=== PATIENT | female | born 1985 | race Caucasian/White ===

== ENCOUNTER 2017-03-04 09:13 | Outpatient (CLI) | payer OTHER ==
[2017-03-04 10:07] LABS: APPEARANCE,URINE SLIGHTLY-CLOUDY; BILIRUBIN,URINE NEGATIVE (NEGATIVE); GLUCOSE, URINE NEGATIVE (NEGATIVE); KETONES,URINE NEGATIVE (NEGATIVE); LEUKOCYTE ESTERASE,URINE NEGATIVE (NEGATIVE); NITRITE,URINE NEGATIVE (NEGATIVE); PROTEIN,URINE NEGATIVE (NEGATIVE); URINE SPECIFIC GRAVITY 1.017; UROBILINOGEN,URINE NEGATIVE mg/dL (<2.0)
--- NOTE | 2017-03-04 10:13 | L&D Progress Notes ---
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 rtc as scheduled SIGNATURE SIGNATURE: [id number] Assignment: Valerie Cosme MD Signature: with User ID: [email or web address] : with User ID: [email or web address]
[2017-03-04 10:29] LABS: URINE BARBITURATES SCREEN NEGATIVE; URINE METHADONE SCREEN NEGATIVE; URINE OPIATES LOW NEGATIVE; URINE PHENCYCLIDINE SCREEN NEGATIVE
== END 2017-03-04 10:20 | disposition home or self-care (01) ==
LOC: LC 09:13
PROVIDERS: ATTEND Obstetrics & Gynecology
PROC: 4A1HXCZ Monitoring of Products of Conception, Cardiac Rate, External Approach (ICD-10-PCS; principal; 2017-03-04)
DX: O26.893 Other specified pregnancy related conditions, third trimester (principal); R10.2 Pelvic and perineal pain; Z3A.37 37 weeks gestation of pregnancy
CPT/HCPCS: 59025; 80307; 81005

== ENCOUNTER 2017-03-20 14:07 | Outpatient (CLI) | payer OTHER ==
[2017-03-20 14:42] LABS: APPEARANCE,URINE SLIGHTLY-CLOUDY; BILIRUBIN,URINE NEGATIVE (NEGATIVE); GLUCOSE, URINE NEGATIVE (NEGATIVE); KETONES,URINE NEGATIVE (NEGATIVE); LEUKOCYTE ESTERASE,URINE MODERATE (NEGATIVE); NITRITE,URINE NEGATIVE (NEGATIVE); PROTEIN,URINE NEGATIVE (NEGATIVE); URINE SPECIFIC GRAVITY 1.009; UROBILINOGEN,URINE NEGATIVE mg/dL (<2.0)
[2017-03-20 14:52] LABS: URINE BARBITURATES SCREEN NEGATIVE; URINE METHADONE SCREEN NEGATIVE; URINE OPIATES LOW NEGATIVE; URINE PHENCYCLIDINE SCREEN NEGATIVE
--- NOTE | 2017-03-20 15:04 | Non Stress Test Report ---
Non Stress Test Datetime Report Generated by CPN: 03/20/2017 15:04 DEMOGRAPHIC EGA NST: 39.2 EGA NST: 37.0 INDICATION Indication for Study: Other Indication for Study: Other Indication for Study (NST) Other: pih Indication for Study (NST) Other: LC-pelvic pain VITAL SIGNS Temperature - NST: 98.6 Pulse - NST: 102 RESP - NST: 16 NBPSYS NST: 126 NBPDIA NST: 65 MONITORING Monitor Explained: Monitor Explained; Test Explained; Patient Verbalized Understanding Monitor Explained: Monitor Explained; Test Explained; Patient Verbalized Understanding Time on Monitor: 03/20/2017 14:33 Time on Monitor: 03/04/2017 09:40 Time off Monitor: 03/20/2017 15:03 Time off Monitor: 03/04/2017 10:00 NST Duration: 30 NST Duration: 20 NST INTERVENTIONS NST Interventions: PO Hydration NST Interventions: None Physician Notified NST: Dr Yeh Physician Notified NST: A Emmel CNM BABY A: [id number] BABY A Movement : Present Movement : Present Contraction Frequency : 0 Contraction Frequency : x0 FHR Baseline : 125 FHR Baseline : 145 Accelerations : 15X15 Accelerations : 15X15 Decelerations : None Decelerations : None Variability : Moderate 6-25bpm Variability : Moderate 6-25bpm NST Review: Meets Criteria for Reactive NST NST Review: Meets Criteria for Reactive NST NST Review and Verified By : Lucius Chaney RN NST Results: Reactive NST Results: Reactive NST REPORT Report Trigger: Send Report
[2017-03-20 15:33] LABS: ABSOLUTE LYMPHOCYTES (AUTO) 1.3 10^3/uL (0.5-4.7); ABSOLUTE MONOCYTES (AUTO) 0.8 10^3/uL (0.1-1.4); ABSOLUTE NEUT (AUTO) 6.1 10^3/uL (1.7-8.2); BASOPHILS % (AUTO) 0.2 % (0-2); EOSINOPHILS % (AUTO) 0.5 % (0-6); HEMATOCRIT 35.4 % (36.0-47.0); HGB HCT DIFFERENCE 0.6; LYMPHOCYTES % (AUTO) 15.7 % (13-45); MEAN CORPUSCULAR HEMOGLOBIN 31.2 pg (27.0-33.4); MEAN CORPUSCULAR HGB CONC 33.8 g/dL (32.0-36.0); MEAN CORPUSCULAR VOLUME 92 fl (80-97); MONOCYTES % (AUTO) 10.2 % (3-13); RED BLOOD COUNT 3.83 10^6/uL (3.72-5.28); RED CELL DISTRIBUTION WIDTH 12.4 % (11.5-14.0); SEGMENTED NEUTROPHILS % (AUTO) 73.4 % (42-78); WHITE BLOOD COUNT 8.3 10^3/uL (4.0-10.5)
[2017-03-20 15:37] LABS: URINE CREATININE 63.7 mg/dL (16-327); URINE PROTEIN 11.4 mg/dL (<12)
[2017-03-20 16:02] LABS: ALANINE AMINOTRANSFERASE 29 U/L (9-52); ALBUMIN 3.1 g/dL (3.5-5.0); ALKALINE PHOSPHATASE 123 U/L (38-126); ANION GAP 7 (5-19); ASPARTATE AMINO TRANSFERASE 16 U/L (14-36); BILIRUBIN,DIRECT 0.2 mg/dL (0.0-0.4); BILIRUBIN,TOTAL 0.3 mg/dL (0.2-1.3); BLOOD UREA NITROGEN 11 mg/dL (7-20); CALCIUM 8.7 mg/dL (8.4-10.2); CARBON DIOXIDE 22 mmol/L (22-30); CHLORIDE 107 mmol/L (98-107); CREATININE RESULT 0.68 mg/dL (0.52-1.25); GLUCOSE 76 mg/dL (75-110); LDH 264 U/L (313-618); POTASSIUM 4.2 mmol/L (3.6-5.0); SODIUM 136.1 mmol/L (137-145); TOTAL PROTEIN 5.9 g/dL (6.3-8.2); URIC ACID 3.8 mg/dL (2.5-6.2)
== END 2017-03-20 16:24 | disposition home or self-care (01) ==
LOC: LC 14:07
PROVIDERS: ATTEND Student in an Organized Health Care Education/Training Program
DX: O26.893 Other specified pregnancy related conditions, third trimester (principal); R10.2 Pelvic and perineal pain; Z3A.39 39 weeks gestation of pregnancy
CPT/HCPCS: 36415; 59025; 80053; 80307; 81001; 82570; 83615; 84156; 84550; 85025

== ENCOUNTER 2017-03-27 18:44 | Inpatient (IN) | payer OTHER ==
[2017-03-27 19:41] LABS: APPEARANCE,URINE SLIGHTLY-CLOUDY; BILIRUBIN,URINE NEGATIVE (NEGATIVE); GLUCOSE, URINE NEGATIVE (NEGATIVE); KETONES,URINE NEGATIVE (NEGATIVE); LEUKOCYTE ESTERASE,URINE SMALL (NEGATIVE); NITRITE,URINE NEGATIVE (NEGATIVE); PROTEIN,URINE NEGATIVE (NEGATIVE); URINE SPECIFIC GRAVITY 1.012; UROBILINOGEN,URINE NEGATIVE mg/dL (<2.0)
[2017-03-27 19:56] LABS: URINE BARBITURATES SCREEN NEGATIVE; URINE METHADONE SCREEN NEGATIVE; URINE OPIATES LOW NEGATIVE; URINE PHENCYCLIDINE SCREEN NEGATIVE
[2017-03-27] MEDS ORDERED: RINGERS SOLUTION,LACTATED 1,000 ML IV PRN (20:00)
[2017-03-27] MEDS ORDERED: OXYTOCIN/NORMAL SALINE 20 UNIT/1,000 ML RTUINJ ONE (20:10)
[2017-03-27] MEDS ORDERED: LIDOCAINE 1% INJ-PF (10 MG/ML) 30 ML SDV ONE (20:10)
[2017-03-27] MEDS ORDERED: MISOPROSTOL 0.2 MG TABLET ONE (20:10)
[2017-03-27 20:32] LABS: ABSOLUTE EOSINOPHILS # (AUTO) 0.1 10^3/uL (0.0-0.6); ABSOLUTE LYMPHOCYTES (AUTO) 1.8 10^3/uL (0.5-4.7); ABSOLUTE MONOCYTES (AUTO) 1.1 10^3/uL (0.1-1.4); ABSOLUTE NEUT (AUTO) 9.8 10^3/uL (1.7-8.2); BASOPHILS % (AUTO) 0.2 % (0-2); EOSINOPHILS % (AUTO) 0.5 % (0-6); HEMATOCRIT 36.5 % (36.0-47.0); HEMOGLOBIN 12.1 g/dL (12.0-15.5); HGB HCT DIFFERENCE -0.2; LYMPHOCYTES % (AUTO) 14.2 % (13-45); MEAN CORPUSCULAR HEMOGLOBIN 30.7 pg (27.0-33.4); MEAN CORPUSCULAR HGB CONC 33.3 g/dL (32.0-36.0); MEAN CORPUSCULAR VOLUME 92 fl (80-97); MONOCYTES % (AUTO) 8.9 % (3-13); RED BLOOD COUNT 3.95 10^6/uL (3.72-5.28); RED CELL DISTRIBUTION WIDTH 12.9 % (11.5-14.0); SEGMENTED NEUTROPHILS % (AUTO) 76.2 % (42-78); WHITE BLOOD COUNT 12.9 10^3/uL (4.0-10.5)
[2017-03-27] MEDS ORDERED: EPHEDRINE SULFATE INJ 50 MG/1 ML AMPULE ONE (20:46)
[2017-03-27] MEDS ORDERED: FENTANYL/BUPIVACAINE/NS/PF 200 MCG/100 ML RTUINJ EPI ONE (20:46)
[2017-03-27] MEDS ORDERED: BUPIVACAINE HCL 0.25 % INJ/PF (2.5 MG/1 ML) 30 ML VIAL ONE (20:46)
--- NOTE | 2017-03-27 21:17 | L&D Progress Notes ---
PROGRESS NOTES Datetime Report Generated by CPN: 03/27/2017 21:17 PROGRESS NOTE Impression: Normal Progression of Labor Procedures: Sterile Vag Exam Plan: Continue Present Management; Anticipate Vaginal Delivery Informed Consent Obtained: Vaginal Delivery; Risks, Benefits and Alternatives Discussed Informed Consent Obtained: Vaginal Delivery; Risks, Benefits and Alternatives Discussed Vital Signs : Reviewed; Within Normal Limits Comment: pt now comfortable with epidural. Floey to gravity placed. SROM just after epidural - clear fluid. Cvx 8/80/0 now. Pt doing well and progressing well. no pitocin needed at this time. Continue present management. Anticipate . PElvis adequate for ELVA. VAGINAL EXAM Dilatation: 8 Dilatation: 6 Effacement: 80 Effacement: 80 Station: 0 Station: -1 Contractions: q2 Contractions: q2 MEMBRANES Pooling: Negative Membranes: Ruptured Membranes: Intact Amniotic Fluid Color: Clear FETUS A FHR - Baseline: 135 Monitoring: External US Variability: Moderate 6-25bpm Accelerations: 15X15 Decelerations: None Presentation: Vertex SIGNATURE SIGNATURE: [id number] SIGNATURE: [id number] Signature: with User ID: [email or web address]
[2017-03-27] MEDS ORDERED: PSEUDOEPHEDRINE HCL 30 MG TABLET PO PRN (23:08)
[2017-03-27] MEDS ORDERED: ACETAMINOPHEN 650 MG SUPP.RECT PR PRN (23:08)
[2017-03-27] MEDS ORDERED: GLYCERIN/WITCH HAZEL LEAF 1 EACH MED..PAD TP PRN (23:08)
[2017-03-27] MEDS ORDERED: ACETAMINOPHEN WITH CODEINE #3 TABLET PO PRN (23:08)
[2017-03-27] MEDS ORDERED: DIPH/PERTUSS(ACELL)/TETANUS VAC/PF 0.5 ML SYR (>=10YO) IM PRN (23:08)
[2017-03-27] MEDS ORDERED: ZOLPIDEM TARTRATE 5 MG TABLET PO PRN (23:08)
[2017-03-27] MEDS ORDERED: DIPHENHYDRAMINE HCL 25 MG CAPSULE PO PRN (23:08)
[2017-03-27] MEDS ORDERED: MEASLES,MUMPS&RUBELLA VACC/PF 0.5 ML VIAL SUBCUT PRN (23:08)
[2017-03-27] MEDS ORDERED: DIBUCAINE 1% OINTMENT 28 GM TP PRN (23:08)
[2017-03-27] MEDS ORDERED: PROMETHAZINE HCL INJ 25 MG/1 ML VIAL IV PRN (23:08)
[2017-03-27] MEDS ORDERED: PROMETHAZINE HCL 25 MG TABLET PO PRN (23:08)
[2017-03-27] MEDS ORDERED: BENZOCAINE/MENTHOL AEROSOL SPRAY 56 ML TOP PRN (23:08)
[2017-03-27] MEDS ORDERED: MAGNESIUM HYDROXIDE SUSP 30 ML UDCUP PO PRN (23:08)
[2017-03-27] MEDS ORDERED: PROMETHAZINE HCL 25 MG SUPP.RECT PR PRN (23:08)
[2017-03-27] MEDS ORDERED: NA PHOS,M-B/NA PHOS,DI-BA (ADULT) 133 ML ENEMA PR PRN (23:08)
[2017-03-27] MEDS ORDERED: OXYTOCIN/NORMAL SALINE 20 UNIT/1,000 ML RTUINJ IV PRN (23:08)
--- NOTE | 2017-03-28 01:14 | Admission Physical ---
Datetime Report Generated by CPN: 03/28/2017 01:14 CURRENT ADMISSION Chief Complaint: Uterine Contractions Indication for Induction: Not Applicable Admit Plan: Admit to Unit; Initiate Labor Protocol ALLERGIES Medication Allergies: Yes Medication Allergies: No Known Allergies (03/27/2017) Medication Allergies: No Known Allergies (03/04/2017) Medication Allergies: No Known Allergies (07/27/2015) Latex: Latex Allergies OBSTETRICAL HISTORY EDC: 03/25/2017 00:00 : 4 Para: 2 Term: 2 : 0 SAB: 1 IAB: 0 Livin Gestational Diabetes: No Rh Sensitization: No Incompetent Cervix: No ENRIQUE: No Infertility: No ART Treatment: No Uterine Anomaly: No IUGR: No Hx Previous C/S: No Macrosomia: No Hx Loss/Stillborn: No PIH: No Hx : No Placenta Previa/Abruption: No Depression/PP Depression: No PTL/PROM: No Post Hemorrhage: No Current Procedures: Ultrasound Obstetrical History Comments: G1: 2005, , male, term, epidural, [facility], 8#1 G2: 2009, SAB, early G3: 10/02/14, , male, term, epidural, [facility], 8#4 SEE RECORDS Alcohol: No Marijuana : No Cocaine: No Other Illicit Drugs: No Cigarettes: Never Smoker. 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 Surgery: No Heart Disease: No Hosp/Surgery: Yes Autoimmune Disorder: No Anesthetic Complications: No Kidney Disease: No Abnormal Pap Smear: No Neuro/Epilepsy: No Psychiatric Disorders: No Other Medical Diseases: No Hepatitis/Liver Disease: No Significant Family History: No Varicosities/Phlebitis: No Trauma/Violence : No Thyroid Dysfunction: No Medical History Comments: 12/2009: breast implants wisdom teeth shoulder surgery INFECTIOUS HISTORY Gonorrhea: No Genital Herpes: No Chlamydia: No Tuberculosis: No Syphilis: No Hepatitis: No HIV/AIDS Exposure: No Rash or Viral Illness: No HPV: No PHYSICAL EXAM General: Normal HEENT: Normal Neurologic: Normal Thyroid: Normal Heart: Normal Lungs: Normal Breast: Deferred Back: Normal Abdomen: Normal Genitourinary Exam: Normal Extremities: Normal DTRs: Normal Pelvic Type: Adequate Physical Exam Comments: pelvis proven to 8#4oz Vital Signs: Reviewed; Within Normal Limits VAGINAL EXAM Dilatation: 8 Dilatation: 6 Effacement: 80 Effacement: 80 Station: 0 Station: -1 Contraction Comments: q2 Contraction Comments: q2 MEMBRANES Pooling: Negative Membranes: Ruptured Membranes: Intact Amniotic Fluid Color: Clear FETUS A EGA: 40.2 Monitoring: External US FHR- Baseline: 140 Variability: Moderate 6-25bpm Accelerations: 15X15 Decelerations: None FHR Category: Category I Presentation: Vertex Admit Comment: 32yo (h/o x 2) presents with regular uterine ctx since approx 2 pm today. GBS negative. She was 4cm on presentation and rapidly changed cervix to 6-7cm. Admit to floor. Pt desires epidural. GHTN with this and prior . EFW 8-9#. Pelvis adequate for ELVA. Anticipate . o/w uncomplicated. Augment labor if needed PLANS FOR LABOR AND DELIVERY Labor and Delivery: None Pain Management: Epidural Feeding Preference: Breast Benefit of Breast Feed Discussed: Yes Circumcision: Yes INFORMED CONSENT Informed Consent Obtained: Vaginal Delivery; Risks, Benefits and Alternatives Discussed Informed Consent Obtained: Vaginal Delivery; Risks, Benefits and Alternatives Discussed Signature: with User ID: [email or web address]
--- NOTE | 2017-03-28 03:21 | Delivery Summary ---
Del Sum A-C Datetime Report Generated by CPN: 03/28/2017 03:21 DELIVERY PERSONNEL DELIVERY PERSONNEL: [id number] Delivery Doctor:: Tamie Yeh MD Labor and Delivery Nurse:: Bhumi Hammonds RN Nursery Nurse:: Yahaira Cosme RN Nursery Nurse:: Deepa Angel RN [employer]/INFANTRY OFFICER: Stephanie Hung, ST MATERNAL INFORMATION Delivery Anesthesia: Epidural Medications After Delivery: Pitocin Drip 20 Units/1000ml NSS Estimated Blood Loss (ml): 250 Maternal Complications: None Provider Comments: VMI delivered in JANEEN presentation. No nuchal cord. Shoulders and body delivered w/o difficulty. cord doubly clamped and cut and to maternal abdomen for NRP. Placenta delivered intact spontaneously. Uterine exploration revealed no e/o retained products. No perineal laceration to repair. Apgars 9/9. weight pending. FF at U. Good hemostasis. Mother and baby stable upon provider leaving the room. LABOR SUMMARY EDC: 03/25/2017 00:00 No. Babies in Womb: 1 Attempted: No Labor Anesthesia: Epidural LABOR INFORMATION Reason for Induction: Not Applicable Onset of Labor: 03/27/2017 19:11 Complete Dilatation: 03/27/2017 22:33 Oxytocin: N/A Group B Beta Strep: Negative Steroids Given: None MEMBRANES Membranes Rupture Method: Spontaneous Rupture of Membranes: 03/27/2017 20:45 Length of Rupture (hr): 1.98 Amniotic Fluid Color: Clear Amniotic Fluid Amount: Small Amniotic Fluid Odor: Normal STAGES OF LABOR Stage 1 hr: 3 Stage 1 min: 22 Stage 2 hr: 0 Stage 2 min: 11 Stage 3 hr: 0 Stage 3 min: 3 Total Time in Labor hr: 3 Total Time in Labor min: 36 VAGINAL DELIVERY Episiotomy: None Laceration Extension: N/A Laceration Type: None Laceration Repair: Not Applicable Sponge Count Correct: Yes Sharps Count Correct: Yes CSECTION DELIVERY Primary Indication: N/A Secondary Indication: N/A CSection Incidence: N/A Labor: N/A Elective: N/A CSection Incision: N/A BABY A INFORMATION Delivery Date/Time: 03/27/2017 22:44 Method of Delivery: Vaginal Born in Route : No : N/A Forceps: N/A Vacuum Extraction: N/A Shoulder Dystocia : No PRESENTATION/POSITION BABY A Presentation: Cephalic Cephalic Presentation: Vertex Vertex Position: Left Occipital Anterior Breech Presentation: N/A PLACENTA INFORMATION BABY A Placenta Delivery Time : 03/27/2017 22:47 Placenta Method of Delivery: Expressed Placenta Status: Delivered SCORES BABY A Heart Rate 1 min: >100 bpm Resp Effort 1 min: Good Cry Reflex Irritability 1 min: Cough or Sneeze or Pulls Away Muscle Tone 1 min: Active Motion Color 1 min: Body Dieterich, Extremities Blue Resuscitation Effort 1 min: Tactile Stimulation SCORE 1 MIN: 9 Heart Rate 5 min: >100 bpm Resp Effort 5 min: Good Cry Reflex Irritability 5 min: Cough or Sneeze or Pulls Away Muscle Tone 5 min: Active Motion Color 5 min: Body Dieterich, Extremities Blue SCORE 5 MIN: 9 INFANT INFORMATION BABY A Gestational Age at Delivery: 40.2 Gestational Status: Full Term- 39- 40.6 Weeks Outcome : Liveborn Infant Condition : Stable Sex: Male IDENTIFICATION BABY A Infant Verification Date/Time: 03/27/2017 23:13 ID Band Number: [id number] Mother's Name Verified: Yes Infant RN Verifying : K Cassius RN/ R Michelle RNC WEIGHT/LENGTH BABY A Birthweight (gm): 3565 Infant Weight (lb): 7 Infant Weight (oz): 14 Length (in): 21.00 Length (cm): 53.34 CORD INFORMATION BABY A No. Cord Vessels: 3 Nuchal Cord : N/A Cord Blood Taken: Yes-For Storage (Mom's Blood type +) Infant Suction: None ASSESSMENT BABY A Skin to Skin: Yes Skin to Skin Time (min): 90 SIGNATURES Signature: with User ID: [email or web address]
[2017-03-28] MEDS: ACETAMINOPHEN WITH CODEINE #3 TABLET PO PRN ×4 (03:53→20:21)
[2017-03-28] MEDS: IBUPROFEN 800 MG TABLET PO SCH ×3 (06:26→21:18)
[2017-03-28 07:36] LABS: HEMATOCRIT 36.6 % (36.0-47.0); HEMOGLOBIN 12.1 g/dL (12.0-15.5); HGB HCT DIFFERENCE -0.3; MEAN CORPUSCULAR HEMOGLOBIN 30.6 pg (27.0-33.4); MEAN CORPUSCULAR HGB CONC 33.1 g/dL (32.0-36.0); MEAN CORPUSCULAR VOLUME 92 fl (80-97); RED BLOOD COUNT 3.95 10^6/uL (3.72-5.28); RED CELL DISTRIBUTION WIDTH 12.5 % (11.5-14.0); WHITE BLOOD COUNT 13.3 10^3/uL (4.0-10.5)
[2017-03-28] MEDS: SENNOSIDES/DOCUSATE 8.6-50 MG 1 EACH TABLET PO SCH (08:18)
[2017-03-28] MEDS: FAMOTIDINE 20 MG TABLET PO SCH ×2 (08:19→21:18)
[2017-03-28] MEDS: PRENATAL VITAMIN W-O CA NO5/FE FUMARATE/FA CAPSULE PO SCH (08:19)
[2017-03-28] MEDS: FERROUS SULFATE 325 MG TABLET PO SCH ×2 (08:19→17:12)
[2017-03-28] MEDS: DOCUSATE SODIUM 100 MG CAPSULE PO SCH ×2 (09:04→17:12)
--- NOTE | 2017-03-28 12:22 | PDOC PROGRESS REPORT ---
Subjective-OB Subjective: Post Delivery Day: 32 year old. Denies any needs at this time s/p vaginal delivery no complaints bonding well with infant ff@u-1 mild lochia reports some cramping relieved with motrin and narcotics anticipate d/c tomorrow Physical Exam (OB) Vital Signs: Temp Pulse Resp BP Pulse Ox 97.5 F 74 14 126/60 H 99 03/28/17 08:00 03/28/17 08:00 03/28/17 08:00 03/28/17 08:00 03/28/17 08:00 Intake & Output 03/27/17 03/28/17 03/29/17 06:59 06:59 06:59 Weight 87.3 kg - Lochia Lochia Amount: Small 10-25 ml Lochia Color: Rubra/Red - Abdomen Description: Soft, Round Hernia Present: No Fundal Description: Firm, Midline Fundal Height: u/u - u/2 Objective-Diagnostic Laboratory: 03/28/17 07:00 03/27/17 03/27/17 03/27/17 18:52 20:05 20:05 WBC 12.9 H RBC 3.95 Hgb 12.1 Hct 36.5 MCV 92 MCH 30.7 MCHC 33.3 RDW 12.9 Plt Count 176 Seg Neutrophils % 76.2 Lymphocytes % 14.2 Monocytes % 8.9 Eosinophils % 0.5 Basophils % 0.2 Absolute Neutrophils 9.8 H Absolute Lymphocytes 1.8 Absolute Monocytes 1.1 Absolute Eosinophils 0.1 Absolute Basophils 0.0 Urine Color YELLOW Urine Appearance SLIGHTLY-CLOUDY Urine pH 6.0 Ur Specific [place] 1.012 Urine Protein NEGATIVE Urine Glucose (UA) NEGATIVE Urine Ketones NEGATIVE Urine Blood SMALL H Urine Nitrite NEGATIVE Ur Leukocyte Esterase SMALL H Blood Type A POSITIVE Antibody Screen NEGATIVE 03/28/17 07:00 WBC 13.3 H RBC 3.95 Hgb 12.1 Hct 36.6 MCV 92 MCH 30.6 MCHC 33.1 RDW 12.5 Plt Count 157 Seg Neutrophils % Lymphocytes % Monocytes % Eosinophils % Basophils % Absolute Neutrophils Absolute Lymphocytes Absolute Monocytes Absolute Eosinophils Absolute Basophils Urine Color Urine Appearance Urine pH Ur Specific [place] Urine Protein Urine Glucose (UA) Urine Ketones Urine Blood Urine Nitrite Ur Leukocyte Esterase Blood Type Antibody Screen
[2017-03-29] MEDS: ACETAMINOPHEN WITH CODEINE #3 TABLET PO PRN ×2 (02:14→07:51)
[2017-03-29] MEDS: IBUPROFEN 800 MG TABLET PO SCH ×2 (05:39→12:46)
[2017-03-29 08:57] VITALS: BP 128/70
[2017-03-29] MEDS: SENNOSIDES/DOCUSATE 8.6-50 MG 1 EACH TABLET PO SCH (10:04)
[2017-03-29] MEDS: FERROUS SULFATE 325 MG TABLET PO SCH (10:04)
[2017-03-29] MEDS: FAMOTIDINE 20 MG TABLET PO SCH (10:04)
[2017-03-29] MEDS: PRENATAL VITAMIN W-O CA NO5/FE FUMARATE/FA CAPSULE PO SCH (10:04)
[2017-03-29] MEDS: DOCUSATE SODIUM 100 MG CAPSULE PO SCH (10:04)
--- NOTE | 2017-03-29 11:17 | PDOC DISCHARGE SUMMARY ---
Final Diagnosis Discharge Date: 03/29/17 Discharge Data - Discharge Medication Home Medications: Cmb#95/Iron/FA/Dha [ + Dha Combo Pack] 1 cap PO DAILY 03/04/17 Acetaminophen with Codeine [Tylenol #3 Tablet] 2 each PO Q4HP PRN #14 tablet Docusate Sodium [Colace 100 mg Capsule] 100 mg PO BID #60 capsule 03/29/17 Ibuprofen [Motrin 800 mg Tablet] 800 mg PO Q8 #60 tablet 03/29/17 Gestational Age: 40.2 Reason(s) for Admission: Onset of Labor Procedures: NST Intrapartum Procedure(s): Spontaneous Vaginal Delivery - Neche Data Baby 1 Female at 1 minute: 9 at 5 minutes: 9 Weight: 3565 kg Home with Mother: Yes Complications: No - Diagnosis Test Laboratory: Temp Pulse Resp BP Pulse Ox 97.8 F 82 16 128/70 H 100 03/29/17 08:56 03/29/17 08:56 03/29/17 08:56 03/29/17 08:56 03/29/17 08:56 03/27/17 03/27/17 03/28/17 18:52 20:05 07:00 RBC 3.95 3.95 Hgb 12.1 12.1 Hct 36.5 36.6 Urine Opiates Screen NEGATIVE - Discharge information/Instructions Discharge Activity: Activity As Tolerated, Pelvic Rest, No tub bath Discharge Diet: Regular Disposition: HOME, SELF-CARE Follow up with: [facility] in: 4, Weeks
== END 2017-03-29 13:01 | disposition home or self-care (01) | DRG 775 ==
LOC: LC 18:44 → LR 20:06 → 2S 03-28 01:13
PROVIDERS: ADMIT Student in an Organized Health Care Education/Training Program; ATTEND Student in an Organized Health Care Education/Training Program
PROC: 10E0XZZ Delivery of Products of Conception, External Approach (ICD-10-PCS; principal; 2017-03-27)
PROC: 4A1HXCZ Monitoring of Products of Conception, Cardiac Rate, External Approach (ICD-10-PCS; 2017-03-27)
PROC: 3E0234Z Introduction of Serum, Toxoid and Vaccine into Muscle, Percutaneous Approach (ICD-10-PCS; 2017-03-29)
DX: O13.4 Gestational [pregnancy-induced] hypertension without significant proteinuria, complicating childbirth (principal); Z37.0 Single live birth; Z3A.40 40 weeks gestation of pregnancy; Z23 Encounter for immunization
CPT/HCPCS: 36415; 80307; 81005; 85025; 85027; 86592; 86850; 86900; 86901; 90715; J2590; J3490

== ENCOUNTER 2017-04-03 13:10 | Emergency (ER) | payer OTHER ==
[2017-04-03] MEDS ORDERED: ONDANSETRON 4 MG TAB.RAPDIS PO ONE (13:45)
[2017-04-03] MEDS ORDERED: OXYCODONE-ACETAMINOPHEN 5-325 MG TABLET PO ONE (13:45)
--- NOTE | 2017-04-03 13:45 | ER Document Report ---
ED Medical Screen (RME) - General Chief Complaint: Chest Pain Stated Complaint: CHEST PAIN Time Seen by Provider: 04/03/17 13:42 Notes: Patient is 32-year-old who presents after 1 week ago. There is no problems with the or the . She states since giving she has developed headaches and chest pain. These started approximately 2-3 days ago. They seem to correlate with getting some bad news that is placed or under stress. She states the headaches are similar to her previous sinus headaches are slightly worse. They start in the back and radiate to the front. She has some nausea but no vomiting. She has had no changes in vision. No weakness or numbness. She also states she has chest pain that is bilateral. Movement or breathing. She has not been short of breath. She has had no leg swelling. Patient denies any abdominal pain. Patient denies any specific breast tenderness. No fevers cough cold or congestion. TRAVEL OUTSIDE OF THE [place] IN LAST 30 DAYS: No - Related Data Allergies/Adverse Reactions: No Known Allergies Allergy (Verified 03/27/17 19:07) Past Medical History Renal/ Medical History: Denies: Hx Peritoneal Dialysis Past Surgical History: Reports: Hx Breast Surgery - Immunizations Hx Diphtheria, Pertussis, Tetanus Vaccination: No Physical Exam - Vital signs Vitals: Temp Pulse Resp BP Pulse Ox 98.0 F 65 20 133/73 H 97 04/03/17 13:21 04/03/17 13:21 04/03/17 13:21 04/03/17 13:21 04/03/17 13:21 Course - Vital Signs Vital signs: Temp Pulse Resp BP Pulse Ox 98.0 F 65 20 133/73 H 97 04/03/17 13:21 04/03/17 13:21 04/03/17 13:21 04/03/17 13:21 04/03/17 13:21
[2017-04-03 14:12] LABS: ABSOLUTE EOSINOPHILS # (AUTO) 0.1 10^3/uL (0.0-0.6); ABSOLUTE LYMPHOCYTES (AUTO) 1.3 10^3/uL (0.5-4.7); ABSOLUTE MONOCYTES (AUTO) 0.7 10^3/uL (0.1-1.4); ABSOLUTE NEUT (AUTO) 5.2 10^3/uL (1.7-8.2); BASOPHILS % (AUTO) 0.6 % (0-2); EOSINOPHILS % (AUTO) 1.4 % (0-6); HEMATOCRIT 39.8 % (36.0-47.0); HEMOGLOBIN 13.4 g/dL (12.0-15.5); HGB HCT DIFFERENCE 0.4; LYMPHOCYTES % (AUTO) 17.8 % (13-45); MEAN CORPUSCULAR HEMOGLOBIN 30.7 pg (27.0-33.4); MEAN CORPUSCULAR HGB CONC 33.5 g/dL (32.0-36.0); MEAN CORPUSCULAR VOLUME 91 fl (80-97); MONOCYTES % (AUTO) 9.5 % (3-13); RED BLOOD COUNT 4.36 10^6/uL (3.72-5.28); RED CELL DISTRIBUTION WIDTH 12.6 % (11.5-14.0); SEGMENTED NEUTROPHILS % (AUTO) 70.7 % (42-78); WHITE BLOOD COUNT 7.4 10^3/uL (4.0-10.5)
[2017-04-03 14:14] LABS: APPEARANCE,URINE SLIGHTLY-CLOUDY; BILIRUBIN,URINE NEGATIVE (NEGATIVE); GLUCOSE, URINE NEGATIVE (NEGATIVE); KETONES,URINE NEGATIVE (NEGATIVE); LEUKOCYTE ESTERASE,URINE NEGATIVE (NEGATIVE); NITRITE,URINE NEGATIVE (NEGATIVE); PROTEIN,URINE NEGATIVE (NEGATIVE); URINE SPECIFIC GRAVITY 1.004; UROBILINOGEN,URINE NEGATIVE mg/dL (<2.0)
[2017-04-03 14:22] LABS: ALANINE AMINOTRANSFERASE 109 U/L (9-52); ALBUMIN 3.8 g/dL (3.5-5.0); ALKALINE PHOSPHATASE 162 U/L (38-126); ANION GAP 11 (5-19); ASPARTATE AMINO TRANSFERASE 47 U/L (14-36); BILIRUBIN,DIRECT 0.3 mg/dL (0.0-0.4); BILIRUBIN,TOTAL 0.3 mg/dL (0.2-1.3); BLOOD UREA NITROGEN 16 mg/dL (7-20); CALCIUM 9.5 mg/dL (8.4-10.2); CARBON DIOXIDE 26 mmol/L (22-30); CHLORIDE 106 mmol/L (98-107); CREATININE RESULT 0.75 mg/dL (0.52-1.25); GLUCOSE 78 mg/dL (75-110); POTASSIUM 4.3 mmol/L (3.6-5.0); SODIUM 143.1 mmol/L (137-145)
[2017-04-03] MEDS ORDERED: NORMAL SALINE 1000 ML 1,000 ML IV ONE (14:52)
[2017-04-03] MEDS ORDERED: KETOROLAC TROMETHAMINE INJ/PF 30 MG/1 ML SDV IV ONE (14:52)
[2017-04-03] MEDS ORDERED: LIDOCAINE 2% VISCOUS SOLN 20 ML UDCUP PO ONE (14:52)
[2017-04-03] MEDS ORDERED: MAG HYDROX/AL HYDROX/SIMETH SUSP 30 ML UDCUP PO ONE (14:52)
[2017-04-03] MEDS ORDERED: METOCLOPRAMIDE HCL ORAL SOLN 10 MG/10 ML UDCUP PO ONE (14:52)
--- NOTE | 2017-04-03 14:56 | RADIOLOGY REPORT (SQ) ---
EXAM DESCRIPTION: CHEST PA/LAT COMPLETED DATE/TIME: 04/03/2017 2:13 pm REASON FOR STUDY: chest pain COMPARISON: July 2015 EXAM PARAMETERS: NUMBER OF VIEWS: two views TECHNIQUE: Digital Frontal and Lateral radiographic views of the chest acquired. RADIATION DOSE: NA LIMITATIONS: none FINDINGS: LUNGS AND PLEURA: No opacities, masses or pneumothorax. No pleural effusion. MEDIASTINUM AND HILAR STRUCTURES: No masses or contour abnormalities. HEART AND VASCULAR STRUCTURES: Heart normal size. No evidence for failure. BONES: No acute findings. HARDWARE: None in the chest. OTHER: No other significant finding. IMPRESSION: NO SIGNIFICANT RADIOGRAPHIC FINDING IN THE CHEST. TECHNICAL DOCUMENTATION: JOB ID: [id number] [employer]- All Rights Reserved
--- NOTE | 2017-04-03 16:37 | RADIOLOGY REPORT (SQ) ---
EXAM DESCRIPTION: U/S ABDOMEN LIMITED W/O DOP COMPLETED DATE/TIME: 04/03/2017 4:03 pm REASON FOR STUDY: epigastric pain, elevated liver enzymes COMPARISON: None. TECHNIQUE: Dynamic and static grayscale images acquired of the abdomen and recorded on PACS. Additio nal selected color Doppler and spectral images recorded. LIMITATIONS: None. FINDINGS: PANCREAS: No masses. Visualized pancreatic duct normal caliber. LIVER: Liver appears mildly enlarged measuring 19 cm. No masses. Echotexture normal. LIVER VASCULATURE: Normal directional flow of the main portal vein and hepatic veins. GALLBLADDER: No gallstones. Small polyp. Gallbladder is contracted and appears thick walled which m ay only be related to the contracted nature of the gallbladder. Cholecystitis is unlikely given the lack of gallbladder distention. Repeat examination after fasting is recommended. ULTRASOUND-DETECTED LIMON'S SIGN: Negative. INTRAHEPATIC DUCTS AND COMMON DUCT: CBD and intrahepatic ducts normal caliber. No filling defects. INFERIOR VENA CAVA: Normal flow. AORTA: No aneurysm. RIGHT KIDNEY: Normal size. Normal echogenicity. No solid or suspicious masses. No hydronephrosis. No calcifications. PERITONEAL AND RIGHT PLEURAL SPACE: No ascites or effusions. OTHER: No other significant findings. IMPRESSION: 1. Mild hepatomegaly. 2. Gallbladder is contracted. The gallbladder appears thick walled possibly related to the contract ed nature of the gallbladder or adjacent liver disease. No definite stones. Followup examination af ter fasting is recommended. TECHNICAL DOCUMENTATION: JOB ID: [id number] [employer]- All Rights Reserved
[2017-04-03] MEDS ORDERED: MORPHINE SULFATE 10 MG/ML INJ IV ONE ×2 (17:04→18:48)
--- NOTE | 2017-04-03 17:04 | ER Document Report ---
ED Cardiac - General Chief Complaint: Chest Pain Stated Complaint: CHEST PAIN Time Seen by Provider: 04/03/17 13:42 Mode of Arrival: Ambulatory Information source: Patient Notes: Patient is a 32-year-old female 1 week with a normal vaginal delivery who presents to the ER today for chest pain radiating up her chest. She states this is been going on for 3 days. She also states she has had a headache for 1 week. She states the headache feels like "sinus" headache and is located in her forehead only. She states there were no complications from the delivery and that she is still having some vaginal bleeding. She admits to nausea but no vomiting. She denies any diarrhea. She denies any shortness of breath, wheezing. She denies any history of heart attack, stroke, gallbladder issues, pancreatitis. TRAVEL OUTSIDE OF THE [place] IN LAST 30 DAYS: No - Related Data Allergies/Adverse Reactions: No Known Allergies Allergy (Verified 03/27/17 19:07) Past Medical History - General Information source: Patient - Social History Smoking Status: Never Smoker Frequency of alcohol use: None Drug Abuse: None Family History: Reviewed & Not Pertinent Patient has suicidal ideation: No Patient has homicidal ideation: No Renal/ Medical History: Denies: Hx Peritoneal Dialysis Past Surgical History: Reports: Hx Breast Surgery - Immunizations Hx Diphtheria, Pertussis, Tetanus Vaccination: No Review of Systems - Review of Systems Constitutional: No symptoms reported. denies: Chills, Fever EENT: No symptoms reported Cardiovascular: See HPI Respiratory: No symptoms reported Gastrointestinal: See HPI Genitourinary: No symptoms reported Female Genitourinary: See HPI Musculoskeletal: No symptoms reported Skin: No symptoms reported Hematologic/Lymphatic: No symptoms reported Neurological/Psychological: No symptoms reported Physical Exam - Vital signs Vitals: Temp Pulse Resp BP Pulse Ox 98.0 F 65 20 133/73 H 97 04/03/17 13:21 04/03/17 13:21 04/03/17 13:21 04/03/17 13:21 04/03/17 13:21 - Notes Notes: PHYSICAL EXAMINATION: GENERAL: Uncomfortable appearing, but in no acute distress. HEAD: Atraumatic, normocephalic. EYES: Pupils equal round and reactive to light, extraocular movements intact, sclera anicteric, conjunctiva are normal. ENT: ear canals without erythema or foreign body, TMs pearly catherine with good bony landmarks, nares patent, oropharynx clear without exudates. Moist mucous membranes. NECK: Normal range of motion, supple without lymphadenopathy LUNGS: CTAB and equal. No wheezes rales or rhonchi. HEART: Regular rate and rhythm without murmurs ABDOMEN: Soft, right upper quadrant, epigastric tenderness. No guarding, no rebound BACK: no vertebral tenderness, normal ROM GI/: no CVA tenderness EXTREMITIES: Normal range of motion, no pitting edema. No cyanosis. NEUROLOGICAL: Cranial nerves grossly intact. Normal sensory/motor exams. PSYCH: Normal mood, normal affect. SKIN: Warm, Dry, normal turgor, no rashes or lesions noted Course - Re-evaluation Re-evalutation: 04/03/17 18:31 Patient's liver enzymes are elevated, especially compared to March 20 of this month when they were completely normal. Patient does have right upper quadrant pain. Right upper quadrant ultrasound reveals hepatomegaly with a contracted gallbladder with thickened ambrose. It is unclear if the thickened ambrose are due to contraction of the gallbladder or not. Patient has a normal white count and is afebrile with normal vital signs. Her blood pressure is fine at 130/80 today. She is not tachycardic. Patient has required some narcotic pain medication and is pumping and dumping her breast milk. Zofran has helped her nausea. I did discuss this case with Dr. Hatch, [facility] on-call who states that this sounds like biliary colic which she states is very common around this time after . She does however want me to consult with the surgeon. I did consult with surgeon, Dr. Pruitt, who reviewed labs and ultrasound and states that this does not look like an acute cholecystitis. He wanted to follow -up in the office if need be outpatient. Patient agrees with this plan and I will send her home with some pain medication, she does understand that she will have to pump and dump if she does take it. - Vital Signs Vital signs: Temp Pulse Resp BP Pulse Ox 98.0 F 65 18 141/80 H 96 04/03/17 13:21 04/03/17 13:21 04/03/17 15:01 04/03/17 15:01 04/03/17 15:01 - Laboratory Result Diagrams: 04/03/17 13:50 04/03/17 13:50 Laboratory results interpreted by me: 04/03/17 04/03/17 11:35 13:50 AST 47 H ALT 109 H Alkaline Phosphatase 162 H Urine Blood SMALL H Discharge - Discharge Clinical Impression: Right upper quadrant pain, Elevated liver enzymes Condition: Stable Disposition: HOME, SELF-CARE Instructions: Gallbladder Disease ([facility]), Colic ([facility]) Additional Instructions: Return immediately for any new or worsening symptoms. Follow up with [facility], call tomorrow to make followup appointment. Prescriptions: Ondansetron [Zofran Odt 4 mg Tablet] 1 - 2 tab PO Q4HP PRN #20 tab.rapdis PRN Reason: Hydrocodone/Acetaminophen [[place] 5-325 mg Tablet] 1 tab PO Q4 PRN #20 tablet PRN Reason:
[2017-04-03 19:13] VITALS: BP 124/80
--- NOTE | 2017-04-05 05:55 | EKG REPORT ---
SEVERITY:- BORDERLINE ECG - SINUS RHYTHM BORDERLINE T ABNORMALITIES, ANT-LAT LEADS : Confirmed by: Laina Alvarez MD 05-Apr-2017 05:55:10
== END 2017-04-03 19:13 | disposition home or self-care (01) ==
LOC: ER 13:10
DX: R10.11 Right upper quadrant pain (principal); R74.8 Abnormal levels of other serum enzymes; R07.9 Chest pain, unspecified; R51 Headache
CPT/HCPCS: 93005; 96376; 99285; 96374; 96375; 36415; 83690; 85025; 80053; 81001; 71020; 76705; 93010; S0119; J3490; J1885; J2270; J7030

== ENCOUNTER 2017-05-10 08:28 | Day surgery (SDC) | payer OTHER ==
[~2017-05-10 08:28] MED LIST: ACETAMINOPHEN 325 MG TABLET PO PRN; BUPIVACAINE HCL 0.25 % INJ/PF (2.5 MG/1 ML) 30 ML VIAL ONE; CEFAZOLIN 1 GM/D5W RTU 1 GM/50 ML RTUPB IV PRN; LACTATED RINGERS 1000 ML IV PRN; LIDOCAINE 0.5% INJ-PF (5 MG/ML) 50 ML SDV SUBCUT PRN
[2017-05-10] MEDS ORDERED: MIDAZOLAM 2 MG/2 ML INJ ONE (09:29)
[2017-05-10] MEDS ORDERED: HYDROMORPHONE HCL INJ/PF 2 MG/ML AMPULE ONE (09:29)
[2017-05-10] MEDS ORDERED: FENTANYL CITRATE INJ/PF 250 MCG/5 ML AMPULE ONE (09:29)
[2017-05-10] MEDS ORDERED: PROPOFOL INJ 200 MG/20 ML VIAL IV ONE (09:30)
[2017-05-10] MEDS ORDERED: ACETAMINOPHEN 100 ML IV ONE (09:30)
[2017-05-10] MEDS ORDERED: MORPHINE SULFATE 10 MG/ML INJ IV PRN ×2 (10:16→10:40)
[2017-05-10] MEDS ORDERED: MEPERIDINE HCL/PF INJ 25 MG/1 ML DISP.SYRIN IV PRN (10:16)
[2017-05-10] MEDS ORDERED: OXYCODONE-ACETAMINOPHEN 5-325 MG TABLET PO PRN ×3 (10:16→10:40)
[2017-05-10] MEDS ORDERED: PROMETHAZINE HCL INJ 25 MG/1 ML VIAL IV PRN ×2 (10:16)
[2017-05-10] MEDS ORDERED: FENTANYL CITRATE INJ/PF 100 MCG/2 ML AMPUL IV PRN ×3 (10:16)
[2017-05-10] MEDS ORDERED: DIPHENHYDRAMINE HCL 50 MG/ML VIAL IV PRN (10:16)
[2017-05-10] MEDS ORDERED: ONDANSETRON HCL INJ/PF 4 MG/2 ML SDV IV PRN (10:40)
[2017-05-10] MEDS ORDERED: KETOROLAC TROMETHAMINE 10 MG TABLET PO PRN (10:40)
--- NOTE | 2017-05-10 10:40 | PDOC DISCHARGE SUMMARY ---
Discharge Summary (SDC) - Discharge Final Diagnosis: GS Date of Surgery: 05/10/17 Discharge Date: 05/10/17 Condition: Good Treatment or Instructions: [facility] [address] [place], [place] [address] Discharge Instructions: Laparoscopic Surgery 1. General Information: a. DO NOT DRIVE a car or operate dangerous machinery for 3-4 days or while taking narcotic pain pills. b. DO NOT consume alcohol, tranquilizers, sleeping medications or any non- prescribed medications for 24 hours unless approved by your doctor or as long as taking narcotic prescription medications. c. DO NOT make important decisions or sign any important papers for the first 24 hours after surgery. d. When discharged home the same day of surgery have a responsible person with you for the first night. 2. Activity Restrictions: 2 weeks. a. NO heavy lifting, straining abdominal muscles, bending over a lot, yard work, house work, or sports for [address] for 3-4 days or while taking toradol. c. It is fine to go for walks, up and down steps, ride in a car. d. Elevate your head when sleeping/resting. 3. Treatment: a. You may shower 24 hours after surgery, no baths or swimming for 2 weeks. Remove band-aids or dressings before shower but leave paper strips (steri-strips ) on the skin to fall off on their own. If still on at postoperative visit they will be removed then. b. Drainage of fluid or blood is not unusual from an incision. If occurs, you can clean with peroxide and cotton ball daily and cover with dry gauze until the wound seals. c. If a lot of bleeding occurs, you can hold pressure with a gauze or cloth over the site for 10 minutes and it will usually stop. If bleeding continues you will need to call for possible evaluation in office or emergency room. 4. Medications: a. Toradol may be taken for pain as needed, one or two tablets every 4-6 hours. Stop the narcotic when able since you cannot take it and drive, and they cause constipation. You may switch to plain Tylenol, Advil or Aleve as you transition from the narcotic. Many adults find good pain relief with Advil 600- 800 mg three times a day with meals. This can cause indigestion, ulcers, and kidney problems with long-term use. b. You should resume all normal medications unless a change is specified by your doctors. c. Begin with clear liquids and may progress to your normal diet if not nauseated. No high fat, high protein foods the day of surgery. Normal diet 6. The following may occur after laparoscopic surgery: a. Shoulder or upper back ache from retained gas that should resolve in 1-2 days b. Soreness and bruising at incision sites will resolve with time. c. Scrotal swelling (labia in women) and bruising is often seen after hernia surgery. d. Sore throat e. Fatigue may last days to weeks. f. Difficulty urinating may occur and may need to come into emergency room for urinary catheter placement. 7. Notify Physician If: a. Worsening or pain not improved with pain medication b. Persistent nausea and vomiting c. Fever above 101 d. Persistent bleeding or swelling at operative site e. Unable to urinate and uncomfortable bladder 6-8 hours after surgery 8..Follow Up Care: a. Schedule a follow up appointment with your doctor for 2 weeks. In the event of any postoperative problems or questions or you may call the office during business hours or the On-Call physician evenings and weekends at [facility]. [facility] I understand the instructions for my postoperative care as described above and a copy has been given to me. Patient/Significant Other Witness Date Prescriptions: Ketorolac Tromethamine [Toradol 10 mg Tablet] 10 mg PO Q6HP PRN #10 tablet PRN Reason: Referrals: EDEN PRIETO DO [Primary Care Provider] - Discharge Diet: As Tolerated Discharge Activity: Activity As Tolerated Home Care Assistance: None Needed Report the Following to Your Physician Immediately: Shortness of Breath, Increase in Pain, Fever over 101 Degrees
--- NOTE | 2017-05-10 10:46 | Operative Report ---
Operative Report DATE OF SURGERY: 05/10/17 Operative Report: Symptomatic cholelithiasis cholecystitis PREOPERATIVE DIAGNOSIS: Symptomatic cholelithiasis cholecystitis POSTOPERATIVE DIAGNOSIS: Same OPERATION: Laparoscopic cholecystectomy SURGEON: PATI ROMAN ANESTHESIA: GA TISSUE REMOVED OR ALTERED: 1 gallbladder with contents COMPLICATIONS: None ESTIMATED BLOOD LOSS: None INTRAOPERATIVE FINDINGS: See below PROCEDURE: Patient taken to the preop holding area the main operating room and general anesthesia was induced. Arms were abducted, abdomen exposed, prepped and draped with Betadine. Surgical plan and surgical timeout were conducted Suitable sites were chosen for placement of ports at the supraumbilical subxiphoid and right upper quadrant. Skin was any stopped record percent Marcaine. A small incision made over the umbilicus with 11 blade, Veress needle inserted peritoneal cavity pneumoperitoneum was established. Veress needle was removed, 5 mm ports inserted a 5 mm viewing scope inserted under direct visualization 3 additional ports were placed in the subxiphoid and right upper quadrant. Findings are significant for no evidence of intra-abdominal pathology other than a distended gallbladder. There is no evidence of vascular or visceral injury. Gallbladder was placed above the liver using grasper and infundibulum and the neck of the gallbladder its junction with the cystic duct was dissected out. The anatomy here was classic. Cystic artery and cystic duct were in the usual location. Photographs were taken. Cystic artery was clipped twice proximally once distally and divided with scissors. Critical view was obtained. Photos were taken. Cystic duct clipped twice proximally once distally divided scissors. Gallbladder removed from the liver bed using hook cautery dissection and brought the patient to the supraumbilical port site without stone or bile spillage. We returned the peritoneal cavity, check for bleeding there was none. Sponge and needle counts correct. All ports removed under direct visualization pneumoperitoneum evacuated wounds closed with 3-0 Vicryl benzoin and Steri-Strips. She tolerated the procedure well, extubated and taken recovery in stable condition.
[2017-05-10] MEDS: FENTANYL CITRATE INJ/PF 100 MCG/2 ML AMPUL ONE ×4 (10:50→11:30)
[2017-05-10] MEDS ORDERED: SUCCINYLCHOLINE CHLORIDE INJ 200 MG/10 ML VIAL ONE (12:15)
[2017-05-10] MEDS ORDERED: LIDOCAINE 2% INJ-PF (20 MG/ML) 10 ML AMPUL ONE (12:15)
[2017-05-10] MEDS ORDERED: KETOROLAC TROMETHAMINE 60 MG/2 ML SDV ONE (12:15)
[2017-05-10] MEDS ORDERED: ONDANSETRON HCL INJ/PF 4 MG/2 ML SDV ONE (12:15)
[2017-05-10] MEDS ORDERED: NEOSTIGMINE METHYLSULFATE 10 MG/10 ML VIAL ONE (12:15)
[2017-05-10] MEDS ORDERED: ROCURONIUM BROMIDE INJ 50 MG/5 ML VIAL IV ONE (12:15)
[2017-05-10] MEDS ORDERED: GLYCOPYRROLATE INJ 0.4 MG/2 ML VIAL ONE (12:15)
[2017-05-10] MEDS ORDERED: DEXAMETHASONE SOD PHOSPHATE INJ 4 MG/1 ML VIAL ONE (12:15)
[2017-05-10 14:10] VITALS: BP 136/77
== END 2017-05-10 13:50 | disposition home or self-care (01) ==
LOC: OROUT 08:28
PROVIDERS: ATTEND Surgery
PROC: 0FT44ZZ Resection of Gallbladder, Percutaneous Endoscopic Approach (ICD-10-PCS; principal; 2017-05-10 10:30)
DX: K80.10 Calculus of gallbladder with chronic cholecystitis without obstruction (principal); K21.9 Gastro-esophageal reflux disease without esophagitis; Z87.891 Personal history of nicotine dependence
CPT/HCPCS: 81025; 88304 ×2; 47562; J2250; J0690; J3490 ×2; J1100; J1885; J3010 ×2; J1170; J0330; J2405; J2704; J0131; 790

== ENCOUNTER 2017-05-10 18:03 | Emergency (ER) | payer OTHER ==
[2017-05-10 18:07] VITALS: BP 141/81
[2017-05-10] MEDS ORDERED: OXYCODONE-ACETAMINOPHEN 5-325 MG TABLET PO ONE (18:42)
--- NOTE | 2017-05-10 18:43 | ER Document Report ---
ED GI/ - General Mode of Arrival: Ambulatory Information source: Patient TRAVEL OUTSIDE OF THE [place] IN LAST 30 DAYS: No - General Chief Complaint: Abdominal Pain Stated Complaint: POST OP COMPLICATION Time Seen by Provider: 05/10/17 18:30 Notes: Anitra is a 32 year old female presenting to the emergency department for right upper quadrant pain relating to her recent cholecystectomy which occurred this morning. Patient was given tordol today and discharged with tordol for her pain. Patient states it feels like she is being punched in her side. Patient states it hurts when she breaths. Patient states her surgeon was Dr. Chin. Patient denies any nausea, fevers, or vomiting. Patient is 4 weeks and is breast feeding. Patient has no known drug allergies. (MARBIN GAGNON) - Related Data Allergies/Adverse Reactions: No Known Allergies Allergy (Verified 05/10/17 18:05) Past Medical History - General Information source: Patient - Social History Smoking Status: Former Smoker Cigarette use (# per day): No Chew tobacco use (# tins/day): No Smoking Education Provided: No Frequency of alcohol use: Occasional Drug Abuse: None Family History: None Patient has suicidal ideation: No Patient has homicidal ideation: No - Past Medical History Cardiac Medical History: Reports: Hx Hypertension - "last few weeks of " Past Surgical History: Reports: Hx Breast Surgery, Hx Cholecystectomy - - Immunizations Hx Diphtheria, Pertussis, Tetanus Vaccination: Yes Review of Systems - Review of Systems Constitutional: No symptoms reported EENT: No symptoms reported Cardiovascular: No symptoms reported Respiratory: No symptoms reported Gastrointestinal: See HPI, Abdominal pain Genitourinary: No symptoms reported Female Genitourinary: No symptoms reported Musculoskeletal: No symptoms reported Skin: No symptoms reported Hematologic/Lymphatic: No symptoms reported Neurological/Psychological: No symptoms reported -: Yes All other systems reviewed and negative Physical Exam - Vital signs Vitals: Temp Pulse Resp BP Pulse Ox 98.0 F 80 16 141/81 H 96 05/10/17 18:05 05/10/17 18:05 05/10/17 18:05 05/10/17 18:05 05/10/17 18:05 - Notes Notes: GENERAL: Alert, interacts well, appears uncomfortable. No acute distress. HEAD: Normocephalic, atraumatic. EYES: Pupils equal, round, and reactive to light. Extraocular movements intact. ENT: Oral mucosa moist, tongue midline. NECK: Full range of motion. Supple. Trachea midline. LUNGS: Clear to auscultation bilaterally, no wheezes, rales, or rhonchi. No respiratory distress. HEART: Regular rate and rhythm. No murmurs, gallops, or rubs. ABDOMEN: Soft, right upper quadrant tenderness with palpation. Recent incisions are well appearing and do not appear to be infected. Non-distended. Bowel sounds present in all 4 quadrants. EXTREMITIES: Moves all 4 extremities spontaneously. No edema. NEUROLOGICAL: Alert and oriented x3. Normal speech. PSYCH: Normal affect, normal mood. SKIN: Warm, dry, normal turgor. No rashes or lesions noted. (MARBIN GAGNON) Course - Consults Dr. Chin Time consulted: 18:38 - Re-evaluation Re-evalutation: 05/10/17 19:01 Patient was not initially prescribed narcotics due to the fact that she is breast-feeding, patient is planning on pumping and dumping, I think it is quite appropriately to prescribe narcotics to this patient is immediately postop. I did discuss my decision with Dr. Chin the surgeon on-call and he agrees that immediately after cholecystectomy a reasonable number of Percocet prescribed would be 24 to be taken 1 tab every 4 hours as needed for pain. Patient will be discharged home. Patient was advised on pumping and diluting rather than pumping and dumping. ( BRIANA BRASHER) - Vital Signs Vital signs: Temp Pulse Resp BP Pulse Ox 98.0 F 80 16 141/81 H 96 05/10/17 18:05 05/10/17 18:05 05/10/17 18:05 05/10/17 18:05 05/10/17 18:05 - Consults Dr. Chin Reason for consultation: 05/10/17 18:[address] Chin about patient and recommendations. (MARBIN GAGNON) Discharge - Discharge Clinical Impression: Postoperative abdominal pain, S/P cholecystectomy, Intends to breastfeed Hypertension Qualifiers: Hypertension type: essential hypertension Qualified Code(s): I10 - Essential ( primary) hypertension Condition: Stable Disposition: HOME, SELF-CARE Additional Instructions: You may continue to breastfeed if it has been 4 hours since you last took a dose of the Percocet. If it has been less than 4 hours, you may pump and keep the pumped milk. You should dilute the Percocet containing breastmilk with non- percocet containing breastmilk. Prescriptions: Oxycodone HCl/Acetaminophen [Percocet 5-325 mg Tablet] 1 - 2 tab PO Q4HP PRN # 24 tablet PRN Reason: Forms: Elevated Blood Pressure Referrals: EDEN PRIETO DO [Primary Care Provider] - Follow up as needed Scribe Attestation: 05/10/17 19:52 I personally performed the services described in the documentation, reviewed and edited the documentation which was dictated to the scribe in my presence, and it accurately records my words and actions. (BRIANA BRASHER) Scribe Documentation - Scribe Written by Deedee:: Deedee Hernandez 05/10/17 19:00 acting as scribe for :: Micheal
== END 2017-05-10 19:15 | disposition home or self-care (01) ==
LOC: ER 18:03
DX: O99.355 Diseases of the nervous system complicating the puerperium (principal); G89.18 Other acute postprocedural pain; R10.11 Right upper quadrant pain; O16.5 Unspecified maternal hypertension, complicating the puerperium; Z90.49 Acquired absence of other specified parts of digestive tract; Z87.891 Personal history of nicotine dependence
CPT/HCPCS: 99283